=== PATIENT | male | born 1960 | race Caucasian/White ===

== ENCOUNTER 2019-08-17 15:58 | Emergency (ER) | payer MEDICARE, SELFPAY ==
--- NOTE | ~2019-08-17 | XR_ITS ---
EXAMINATION: XR chest 1V portable INDICATION: Cough and chills TECHNIQUE: Portable AP chest at 1644 hours COMPARISON: 03/14/2018 FINDINGS: The lungs are free of acute opacities. There is no pleural effusion or pneumothorax. The ca rdiomediastinal silhouette is normal. IMPRESSION: 1. No acute cardiopulmonary abnormality. Reviewed, dictated and finalized at location A. [facility]
--- NOTE | 2019-08-17 16:12 | PC.NURSE ---
RN ATTEMPTED TO COMPLETE PHYSICAL ASSESSMENT, VITAL SIGNS, PAST MEDICAL HISTORY, ETC. PT BECAME VERY ANGRY WITH THE NURSE FOR ASKING THE SAME QUESTION TWICE, BEGAN RAISING HIS VOICE, CURSING, AND STARTED SLAMMING THE DOOR. PATIENT DEMANDED HE BE SEEN BY ANOTHER NURSE BECAUSE IT IS FRUSTRATING FOR HIM TO ANSWER THE SAME QUESTION TWICE.
[2019-08-17 16:30] VITALS: BP 122/66; PULSE 82; RESP 22; TEMP 37.2; O2SAT 97
--- NOTE | 2019-08-17 16:37 | ED.GENADULT ---
HPI - General Adult General Chief complaint: Nausea/Vomiting/Diarrhea Stated complaint: bronchitis/ vomiting Source: patient Mode of arrival: ambulatory Limitations: no limitations History of Present Illness HPI narrative: 58 y.o. with moderate - severe myalgia, chills, diaphoresis since yesterday. Croup-like cough productive of clear sputum since yesterday. Sore throat and rhinorrhea onset 3 - 4 days ago. Vomiting x 2 days, about 9 times over the past 24 hours. No fever, SOB, abdominal pain or diarrhea. Has used his albuterol inhaler, which he normally does not. Hx. of inherited hypercoagulability condition treated with warfarin ( ? Factor V Leiden). S/p kidney transplant 40 years ago; takes prednisone 7.5 mg and mycophenolate daily. Depression and anxiety are treated with alprazolam and escitalopram. Htn tx. with carvedilol. Gout tx. with allopurinal. States he needs to be home to take care of his who was recently dx. with cancer (not on chemo) Related Data Home Medications Medication Instructions Recorded Confirmed acetaminophen-codeine 1 tablet PO Q6-8H PRN 08/17/19 08/17/19 albuterol sulfate 2 puff INHALATION QID PRN 08/17/19 08/17/19 allopurinol 100 mg PO DAILY 08/17/19 08/17/19 alprazolam 0.5 mg PO TID PRN 08/17/19 08/17/19 aspirin 81 mg PO DAILY 08/17/19 08/17/19 atorvastatin 20 mg PO DAILY 08/17/19 08/17/19 carvedilol 12.5 mg PO BID 08/17/19 08/17/19 cholecalciferol (vitamin D3) 1,000 unit PO DAILY 08/17/19 08/17/19 escitalopram oxalate 20 mg PO DAILY 08/17/19 08/17/19 mycophenolate mofetil 1,000 mg PO Q12H 08/17/19 08/17/19 prednisone 7.5 mg PO DAILY 08/17/19 08/17/19 warfarin 7 mg PO DAILY 08/17/19 08/17/19 Allergies Allergy/AdvReac Type Severity Reaction Status Date / Time No Known Allergies Allergy Unverified 03/14/18 18:18 Review of Systems Review of Systems: Narrative: Has been very upset about news of his having a PET scan showing cancer 2 days ago. 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 ENT: Reports system reviewed and no additional complaints, except as documented Cardiovascular: Cardiovascular: Denies chest pain Respiratory: Respiratory: Denies wheezing Gastrointestinal: Gastrointestinal: Reports no additional gastrointestinal complaints Genitourinary: Genitourinary: Denies dysuria Musculoskeletal: Musculoskeletal: Reports myalgias and Denies joint swelling Integumentary/Breasts: Skin/Breast: Denies rash Neurologic: Reports headache(s) Comments: chronic recurrent headaches, not worse today. Endocrine: Endocrine: Reports polydipsia Hematologic/Lymphatic: Hematologic/Lymphatic: Denies easy bleeding and Denies easy bruising Allergic/Immunologic: Allergic/Immunologic: Denies lip swelling PMFSH Past Medical History Medical History (Updated 08/17/19 @ 18:57 by Josue Littlejohn MD) Anxiety CVA (cerebral vascular accident) Depression Gout Hypertension Surgical History Surgical History (Updated 08/17/19 @ 16:54 by Josue Littlejohn MD) History of appendectomy Kidney transplanted Family History Family History (Updated 08/17/19 @ 16:55 by Josue Littlejohn MD) Mother No problems noted. Father Heart disease Social History Social History (Updated 08/17/19 @ 16:55 by Josue Littlejohn MD) Smoking status: Current every day smoker Gender identity (if verbalized by the patient): Male Exam Const: Other: Looks ill. Shivering one minute when he describes feeling cold, followed by feeling hot. No rigors. HENMT: Mouth: Yes Normal oral and palatal mucosa present Eyes: Other: Left eye is inset Neck: Neck: no lymphadenopathy Chest: Chest palpation & inspection: normal inspection of the chest Resp: Effort & Inspection: tachypneic Auscultation: no rales, no wheezes and diminished lung sounds Cardio: Rhythm: regular rhythm
--- NOTE | 2019-08-17 16:45 | PC.NURSE ---
Pt noted to be intermittently hyperventilating.
[2019-08-17] MEDS: ONDANSETRON INJ 4 MG/2 ML VIAL IV PUSH (16:49)
[2019-08-17] MEDS: IPRATROPIUM 0.5 MG/ALBUTEROL SULFATE 2.5 MG AMPUL.NEB 3 ML INHALATION (16:49)
[2019-08-17 16:52] VITALS: PULSE 77; RESP 24
[2019-08-17 16:56] LABS: Basophils Absolute Auto 0.01 K/mm3 (0.00-0.10); Basophils Percent Auto 0.2 % (0.0-1.0); Eosinophils Absolute Auto 0.01 K/mm3 (0.02-0.50); Eosinophils Percent Auto 0.2 % (1.0-6.0); Hematocrit 39.3 % (40.0-54.0); Hemoglobin 13.3 g/dL (14.0-18.0); Immature Granulocyte Absolute 0.03 K/mm3 (0.00-0.00); Immature Granulocyte Percent A 0.5 % (0.0-0.0); Lymphocytes Absolute Auto 0.29 K/mm3 (1.10-4.50); Lymphocytes Percent Auto 4.7 % (18.0-42.0); Mean Corpuscular HGB Conc 33.8 g/dL (32.0-36.0); Mean Corpuscular Hemoglobin 30.2 pg (27.0-31.0); Mean Corpuscular Volume 89.3 fL (78.0-102.0); Mean Platelet Volume 9.2 fl (8.7-11.0); Monocytes Absolute Auto 0.49 K/mm3 (0.10-0.90); Neutrophils Absolute Auto 5.3 K/mm3 (1.7-7.2); Neutrophils Percent Auto 86.4 % (50.0-70.0); Platelet Count Result 117 K/mm3 (150-420); Red Cell Distribution Width 12.5 % (11.6-14.4); White Blood Count 6.2 K/mm3 (4.8-10.8)
[2019-08-17 17:01] VITALS: TEMP 37.3
[2019-08-17 17:06] LABS: INR 2.4; Prothrombin Time 24.1 Seconds (9.64-11.0)
[2019-08-17] MEDS: ACETAMINOPHEN 325 MG TABLET 650 MG PO (17:07)
[2019-08-17 17:10] LABS: Alanine Aminotransferase 20 U/L (16-63); Albumin Level 3.4 g/dL (3.4-5.0); Alkaline Phosphatase 73 U/L (46-116); Anion Gap 16.9 mmol/L (7-16); Aspartate Amino Transferase 23 U/L (15-37); Bilirubin,Total 0.8 mg/dL (0.00-1.00); Blood Urea Nitrogen 22 mg/dL (7-18); Carbon Dioxide 24 mmol/L (21-32); Chloride 103 mmol/L (98-108); Estimated CRCL calculation 40 ml/min; Estimated Glomerular Filt Rate 37; Glucose 107 mg/dL (70-99); Osmolality Calculated 293 mOsm/kg (285-295); Potassium 3.9 mmol/L (3.5-5.1); Sodium 140 mmol/L (136-145); Total Protein 7.2 g/dL (6.4-8.2)
[2019-08-17 17:16] LABS: Influenza Control Valid (Valid)
[2019-08-17] MEDS: SODIUM CHLORIDE 0.9% IV 1,000 ML 999 ML IV CONT (17:19)
[2019-08-17 17:20] LABS: Lactic Acid 2.1 mmol/L (0.4-2.0)
--- NOTE | 2019-08-17 17:20 | PC.NURSE ---
Dr Littlejohn at bedside.
[2019-08-17 17:21] VITALS: BP 129/70; PULSE 79; RESP 22; O2SAT 99
--- NOTE | 2019-08-17 17:22 | PC.NURSE ---
Read back verbal order Dr Littlejohn- change NS IVF bolus from 1000mL to 500mL.
--- NOTE | 2019-08-17 17:33 | PC.NURSE ---
RA SpO2 81-86%. In to check pt who is sleeping but arouses easily to verbal stim. SpO2 immediately increased to 97% once awake. States he thinks he has undiagnosed sleep apnea. Denies wearing home O2 or Cpap. Dr Littlejohn aware. ABG ordered.
--- NOTE | 2019-08-17 17:40 | PC.NURSE ---
Upon speaking with pt regarding possibility of admission. Pt becoming tearful, adamantly refusing admission at this time stating that his has cancer and he has to go home to take care of her. Dr Littlejohn aware.
[2019-08-17 17:44] LABS: Base Excess ABG 0.2 mmol/L (0-2); HCO3 ABG 18.1 mmol/L (23-29); Oxygen Content ABG 17.7 %vol (16.0-22.0); Oxygen Saturation ABG 98.4 % (95-97); Oxyhemoglobin 96.3 % (94-100); PCO2 ABG 16.2 mmHg (35-45)
[2019-08-17 17:46] LABS: pH ABG 7.67 (7.35-7.45)
[2019-08-17] MEDS: OSELTAMIVIR PHOSPHATE 6 MG/ML SUSP 60 ML BOTTLE 30 MG PO (17:46)
[2019-08-17 17:47] LABS: Device ROOM AIR; Modified Allen's Test Pass; Site Drawn RIGHT RADIAL
--- NOTE | 2019-08-17 17:56 | PC.NURSE ---
Dr Littlejohn at bedside.
[2019-08-17 17:57] VITALS: BP 138/71; PULSE 67; RESP 24; O2SAT 96
[2019-08-17 18:15] VITALS: BP 131/72; PULSE 79; RESP 22; O2SAT 98
[2019-08-17] MEDS: predniSONE 20 MG TABLET 40 MG PO (18:19)
--- NOTE | 2019-08-17 18:20 | PC.NURSE ---
NS IVF 1L discontinued at this time with on 300mL infused, 700mL wasted.
== END 2019-08-17 18:41 | disposition home or self-care (01) ==
PROVIDERS: Emergency Provider Family Medicine; PCP Internal Medicine
DX: J11.1 Influenza due to unidentified influenza virus with other respiratory manifestations (principal); E87.3 Alkalosis; F41.9 Anxiety disorder, unspecified; I10 Essential (primary) hypertension; F17.200 Nicotine dependence, unspecified, uncomplicated; Z86.73 Personal history of transient ischemic attack (TIA), and cerebral infarction without residual deficits
CPT/HCPCS: 36415; 36600; 71045; 80053; 82805; 83605; 85025; 85610; 87040; 87804; 94640; 96361; 96374; 99283; 99284; A9270; J2405; J7030; J7512

== ENCOUNTER 2020-03-15 19:18 | Emergency (ER) | payer MEDICARE, SELFPAY ==
[2020-03-15 19:20] VITALS: BP 160/61; PULSE 71; RESP 16; TEMP 36.9; O2SAT 96
--- NOTE | 2020-03-15 19:46 | ED.GENADULT ---
HPI - General Adult General Chief complaint: Nausea/Vomiting/Diarrhea Stated complaint: hot/cold,vomiting Source: patient Mode of arrival: ambulatory Limitations: no limitations History of Present Illness HPI narrative: This is 59-year-old gentleman that presents with a history of fever feeling fatigued and tired initially mention that he had some mild shortness of breath had an episode of vomiting with some abdominal discomfort with no diarrhea constipation, subjective fever. The patient denied chest pain but does have a history of CV and a history of renal transplant. Denies any chest pain, no flank pain no dysuria. The patient subsequently asked me what test ME going to run and I mentioned blood test, flu test an EKG and an x-ray, and the patient started becoming belligerent and high rate, and said that I was being an SMARTASS , because why are you doing an EKG and a chest x-ray. Patient subsequently became irate and walked out without any further assessment or treatment. Onset (ago): day(s) Associated symptoms: fever/chills, nausea/vomiting and shortness of breath Related Data Home Medications Medication Instructions Recorded Confirmed albuterol sulfate 2 puff INHALATION QID PRN 08/17/19 03/15/20 allopurinol 100 mg PO DAILY 08/17/19 03/15/20 alprazolam 0.5 mg PO TID PRN 08/17/19 03/15/20 aspirin 81 mg PO DAILY 08/17/19 03/15/20 atorvastatin 20 mg PO DAILY 08/17/19 03/15/20 carvedilol 12.5 mg PO BID 08/17/19 03/15/20 cholecalciferol (vitamin D3) 1,000 unit PO DAILY 08/17/19 03/15/20 escitalopram oxalate 20 mg PO DAILY 08/17/19 03/15/20 mycophenolate mofetil 1,000 mg PO Q12H 08/17/19 03/15/20 prednisone 7.5 mg PO DAILY 08/17/19 03/15/20 warfarin 7 mg PO DAILY 08/17/19 03/15/20 Allergies Allergy/AdvReac Type Severity Reaction Status Date / Time No Known Allergies Allergy Unverified 03/14/18 18:18 Review of Systems Review of Systems: All systems reviewed & are unremarkable except as noted in HPI and below PMFSH Past Medical History Medical History Anxiety CVA (cerebral vascular accident) Depression Gout Hypertension Surgical History Surgical History History of appendectomy Kidney transplanted Family History Family History Mother No problems noted. Father Heart disease Social History Social History Smoking status: Current every day smoker Gender identity (if verbalized by the patient): Male Exam Const: General: no acute distress Orientation/consciousness: patient oriented x3 HENMT: Head: normal to inspection Eyes: Conjunctivae: conjunctivae normal Pupils: Equal, round and reactive pupils present Neck: Neck: normal visual inspection and no lymphadenopathy Chest: Chest palpation & inspection: normal inspection of the chest and abnormal inspection of the chest Resp: Effort & Inspection: normal respiratory effort Auscultation: wheezes and diminished lung sounds Cardio: Rate: regular rate Rhythm: regular rhythm GI: GI Palp: Yes Soft to palpation Percussion: Yes normal to percussion Auscultation: normal bowel sounds Back/Spine/Pelvis: Back: no CVA tenderness Skin: General skin exam: normal color Rashes: no rashes Psych: Mental Status: mental status grossly normal Course Course Emergency Course: The patient was upset that I wanted to do an x-ray of his chest and an EKG, and he expressed the fact that why should be pay for those tests. Given the fact the patient has a history of high blood pressure feeling fatigued had audible wheezing, concern was for rule out heart disease, rule out pneumonia, but the patient walked out and threatened to report me and was extremely belligerent and using foul language. Critical Care Time Critical
--- NOTE | 2020-03-15 19:49 | PC.NURSE ---
PT COMES OUT OF ROOM SCREAMING STATING THAT HE WANTS TO REPORT US BECAUSE HE IS TIRED OF US ASKING SO MANY QUESTIONS. STATES THAT THE ERP WAS BEING A SMARTASS. I REMINDED PATIENT THAT WE HAVE TO ASK QUESTIONS TO FIND OUT WHAT KIND OF THINGS WE NEED TO ORDER. PT STATES HE WILL BE CALLING THE HOSPITAL TOMORROW TO REPORT US.
--- NOTE | 2020-03-15 19:55 | PC.NURSE ---
PT TELLS STAFF THAT THERE IS NO REASON TO ORDER ALL OF THESE TESTS BECAUSE WE'RE JUST TRYING TO INCREASE HIS BILL
== END 2020-03-15 19:50 | disposition left against medical advice (07) ==
PROVIDERS: Emergency Provider Emergency Medicine; PCP Internal Medicine
DX: R50.9 Fever, unspecified (principal)
CPT/HCPCS: 99281

== ENCOUNTER 2020-03-16 12:43 | Emergency (ER) | payer MEDICARE, SELFPAY ==
[2020-03-16 12:45] VITALS: BP 137/76; PULSE 79; RESP 16; TEMP 36.7; O2SAT 97
--- NOTE | 2020-03-16 13:06 | ED.NAVMDI ---
HPI - Nausea/Vomiting/Diarrhea General Chief complaint: Weakness Stated complaint: nausea, body aches Time Seen by Provider: 03/16/20 13:06 Source: patient Mode of arrival: ambulatory Limitations: no limitations History of Present Illness HPI Narrative: 59-year-old man with a history of kidney transplant, coronary artery disease, and CVAs comes in today complaining of fatigue, nausea and vomiting which started 2 days ago. He states that he also had chills and felt like he had a fever although his took his temperature and it was normal. he states he has had no vomiting today but still feels fatigued. He denies chest pain, shortness breath, cough or cold symptoms, sore throat, dysuria, hematuria, abdominal pain, rash and diarrhea. He denies any sick exposures or exposures to people or positive for SARS-CoV-2. MD elicited complaint: nausea and vomiting Onset (ago): day(s) (2) Description of vomiting: food contents and watery Associated nausea: Yes Associated abdominal pain: Yes Location of pain: diffuse Pain consistency: intermittent Severity: moderate Exacerbating factors: none Relieving factors: none Context: history of abdominal surgery and anticoagulant use Associated symptoms: myalgias, fever/chills, malaise and nausea/vomiting Related Data Home Medications Medication Instructions Recorded Confirmed albuterol sulfate 2 puff INHALATION QID PRN 08/17/19 03/16/20 allopurinol 100 mg PO DAILY 08/17/19 03/16/20 alprazolam 0.5 mg PO TID PRN 08/17/19 03/16/20 aspirin 81 mg PO DAILY 08/17/19 03/16/20 atorvastatin 20 mg PO DAILY 08/17/19 03/16/20 carvedilol 12.5 mg PO BID 08/17/19 03/16/20 cholecalciferol (vitamin D3) 1,000 unit PO DAILY 08/17/19 03/16/20 escitalopram oxalate 20 mg PO DAILY 08/17/19 03/16/20 mycophenolate mofetil 1,000 mg PO Q12H 08/17/19 03/16/20 warfarin 7 mg PO DAILY 08/17/19 03/16/20 Allergies Allergy/AdvReac Type Severity Reaction Status Date / Time No Known Allergies Allergy Unverified 03/14/18 18:18 Review of Systems Constitutional: Constitutional: Reports chills, Reports fatigue, Reports fever(s) and Denies weakness Eyes: Eyes: Denies change in vision and Denies photophobia ENT: Denies dysphagia, Denies nasal congestion and Denies sore throat Cardiovascular: Cardiovascular: Denies chest pain and Denies radiating jaw, neck or arm pain Respiratory: Respiratory: Denies cough, Denies dyspnea and Denies wheezing Gastrointestinal: Gastrointestinal: Reports as per HPI, Reports abdominal pain, Denies diarrhea, Reports nausea and Reports vomiting Genitourinary: Genitourinary: Denies hematuria, Denies dysuria and Denies urinary frequency Musculoskeletal: Musculoskeletal: Denies arthralgias and Denies joint swelling Integumentary/Breasts: Skin/Breast: Denies pruritus, Denies erythema and Denies rash Neurologic: Denies vertigo, Denies dizziness and Denies syncope Endocrine: Endocrine: Denies polydipsia and Denies polyuria Hematologic/Lymphatic: Hematologic/Lymphatic: Denies easy bleeding and Denies easy bruising Allergic/Immunologic: Allergic/Immunologic: Denies lip swelling and Denies tongue swelling PMFSH Past Medical History Medical History (Updated 03/16/20 @ 13:41 by Josue Zapata MD) Anxiety Congenital kidney disease CVA (cerebral vascular accident) Depression Gout Hypertension Surgical History Surgical History H/O umbilical hernia repair History of appendectomy Kidney transplanted S/P coronary artery stent placement Social History Social History Smoking status: Current every day smoker Gender identity (if verbalized by the patient): Male Exam Const: General: healthy appearing, no acute distress and alert Orientation/consciousness: patient oriented x3 Limitations: no limitations HENMT: Head: normal to inspection Ears: external ears normal, TM's
[2020-03-16 13:20] LABS: Appearance Urine Clear (Clear); Bilirubin Urine Negative (Negative); Color Urine Yellow (Yellow); Glucose Urine UA Negative (Negative); Ketones Urine Negative (Negative); Leukocyte Esterase Ur Negative (Negative); Nitrate Urine Negative (Negative); Protein Urine 2+ (Negative); Urobilinogen Urine 0.2 mg/dL (0.2-1.0)
[2020-03-16 13:26] LABS: Add Urine Microscopic? YES; Bacteria Urine None seen /hpf; Blood Urine Trace-Intact (Negative); RBC Urine 0-2 /hpf (0-2); Squamous Epithelial Cell Urine Rare /hpf (Few); WBC Urine 0-3 /hpf (0-3)
[2020-03-16 13:32] LABS: Basophils Absolute Auto 0.01 K/mm3 (0.00-0.10); Basophils Percent Auto 0.1 % (0.0-1.0); Eosinophils Absolute Auto 0.04 K/mm3 (0.02-0.50); Eosinophils Percent Auto 0.5 % (1.0-6.0); Hematocrit 38.9 % (40.0-54.0); Hemoglobin 12.3 g/dL (14.0-18.0); Immature Granulocyte Absolute 0.05 K/mm3 (0.00-0.00); Immature Granulocyte Percent A 0.7 % (0.0-0.0); Immature Platelet Fraction Pct 1.4 % (1.0-7.0); Lymphocytes Absolute Auto 1.01 K/mm3 (1.10-4.50); Lymphocytes Percent Auto 13.8 % (18.0-42.0); Mean Corpuscular HGB Conc 31.6 g/dL (32.0-36.0); Mean Corpuscular Volume 91.7 fL (78.0-102.0); Mean Platelet Volume 9.3 fl (8.7-11.0); Monocytes Absolute Auto 0.48 K/mm3 (0.10-0.90); Monocytes Percent Auto 6.5 % (2.0-11.0); Neutrophils Absolute Auto 5.8 K/mm3 (1.7-7.2); Neutrophils Percent Auto 78.4 % (50.0-70.0); Platelet Count Result 138 K/mm3 (150-420); Red Blood Count 4.24 M/mm3 (4.70-6.10); Red Cell Distribution Width 12.9 % (11.6-14.4); White Blood Count 7.3 K/mm3 (4.8-10.8)
[2020-03-16 13:47] LABS: Alanine Aminotransferase 20 U/L (16-63); Albumin Level 3.4 g/dL (3.4-5.0); Alkaline Phosphatase 83 U/L (46-116); Anion Gap 8 mmol/L (8-16); Aspartate Amino Transferase 15 U/L (15-37); Bilirubin,Total 0.5 mg/dL (0.00-1.00); Blood Urea Nitrogen 27 mg/dL (7-18); Calcium 8.9 mg/dL (8.5-10.1); Carbon Dioxide 29 mmol/L (21-32); Chloride 104 mmol/L (98-108); Estimated CRCL calculation 39 ml/min; Estimated Glomerular Filt Rate 38; Glucose 120 mg/dL (70-99); Osmolality Calculated 298 mOsm/kg (285-295); Potassium 4.5 mmol/L (3.5-5.1); Sodium 141 mmol/L (136-145); Total Protein 7.2 g/dL (6.4-8.2)
[2020-03-16 14:02] VITALS: BP 131/72; PULSE 64
[2020-03-16 14:04] VITALS: BP 134/71; PULSE 70
--- NOTE | 2020-03-16 14:15 | PC.NURSE ---
pt resting per cot. no complaint voiced at this time
[2020-03-16 14:38] LABS: Influenza Control Valid (Valid)
[2020-03-16 14:51] VITALS: BP 137/72; PULSE 63; RESP 20; O2SAT 99
[2020-03-17 02:13] LABS: SARS-CoV-2 RNA PCR Negative
== END 2020-03-16 14:53 | disposition home or self-care (01) ==
PROVIDERS: Emergency Provider Emergency Medicine; PCP Internal Medicine
DX: B34.9 Viral infection, unspecified (principal); Z86.73 Personal history of transient ischemic attack (TIA), and cerebral infarction without residual deficits; I10 Essential (primary) hypertension; F17.200 Nicotine dependence, unspecified, uncomplicated
CPT/HCPCS: 80053; 81001; 85025; 85055; 87635; 87804; 99282; 99283; C9803; U0003

== ENCOUNTER 2020-09-17 12:52 | Emergency (ER) | payer MEDICARE, SELFPAY ==
[2020-09-17 13:00] VITALS: BP 141/92; PULSE 85; RESP 16; TEMP 37; O2SAT 98
[2020-09-17] MEDS: TETANUS,DIPHTHERIA,AC PERTUSSIS ADULT 0.5 ML (ADACEL) IM (13:09)
--- NOTE | 2020-09-17 13:24 | ED.WOUNDLAC ---
HPI - Wound/Laceration General Chief Complaint: Wound/Laceration Stated Complaint: poked in the leg by a richar wire Time Seen by Provider: 09/17/20 13:24 Source: patient Mode of arrival: ambulatory Limitations: no limitations History of Present Illness HPI narrative: 59-year-old man with a history of kidney transplant and CVA comes in today complaining a puncture wound on his right lower leg. Was putting up tomato ladders when the end (soil end) of the wire poked him in the leg. Does not recall his last tetanus shot. He is currently taking amoxicillin in anticipation of a dental visit in the morning. Onset (ago): hour(s) (1) Extremity Location: Right: lower leg Place: home and outdoors Patient tetanus UTD: No Context: accidental Associated symptoms: pain Treatments prior to arrival: bandage Related Data Home Medications Medication Instructions Recorded Confirmed allopurinol 100 mg PO DAILY 08/17/19 09/17/20 alprazolam 0.5 mg PO TID PRN 08/17/19 09/17/20 aspirin 81 mg PO DAILY 08/17/19 09/17/20 atorvastatin 20 mg PO DAILY 08/17/19 09/17/20 cholecalciferol (vitamin D3) 1,000 unit PO DAILY 08/17/19 09/17/20 escitalopram oxalate 20 mg PO DAILY 08/17/19 09/17/20 mycophenolate mofetil 1,000 mg PO Q12H 08/17/19 09/17/20 warfarin 7 mg PO DAILY 08/17/19 09/17/20 acetaminophen-codeine 1 tablet PO Q6H PRN 09/17/20 09/17/20 prednisone 7.5 mg PO DAILY 09/17/20 09/17/20 Allergies Allergy/AdvReac Type Severity Reaction Status Date / Time No Known Allergies Allergy Unverified 03/14/18 18:18 Review of Systems Review of Systems: All systems reviewed & are unremarkable except as noted in HPI and below Constitutional: Constitutional: Denies chills and Denies fever(s) Musculoskeletal: Musculoskeletal: Denies joint swelling Integumentary/Breasts: Skin/Breast: Denies pruritus, Denies erythema and Denies rash Hematologic/Lymphatic: Hematologic/Lymphatic: Reports easy bleeding and Reports easy bruising (on Warfarin) Allergic/Immunologic: Allergic/Immunologic: Denies lip swelling and Denies throat swelling [facility] Past Medical History Medical History Anxiety Congenital kidney disease CVA (cerebral vascular accident) Depression Gout Hypertension Surgical History Surgical History (Updated 09/17/20 @ 13:39 by Josue Zapata MD) H/O umbilical hernia repair History of appendectomy Kidney transplanted S/P coronary artery stent placement Family History Family History Mother No problems noted. Father Heart disease Social History Social History Smoking status: Current every day smoker Gender identity (if verbalized by the patient): Male Exam Const: General: no acute distress and alert Orientation/consciousness: patient oriented x3 Limitations: no limitations HENMT: Head: normal to inspection Eyes: Conjunctivae: conjunctivae normal Pupils: Equal, round and reactive pupils present Resp: Effort & Inspection: normal respiratory effort and not labored Auscultation: clear to auscultation bilaterally, no rales, no rhonchi and no wheezes Cardio: Rate: regular rate Rhythm: regular rhythm Heart sounds: no murmurs Skin: General skin exam: normal color, no jaundice and no pallor Rashes: no rashes Other: 1.5 cm irregular puncture wound over the right palm. No palpable foreign body or active bleeding. Neuro: General: patient oriented x3, moves all extremities, no focal motor deficits and CN's II-XI intact bilaterally Speech: normal speech Gait exam (Neuro): Normal gait present Extrem: General: normal to inspection and no clubbing, cyanosis or edema Psych: Appearance: grossly normal and well kempt Mental Status: mental status grossly normal Affect: normal affect Attitude: cooperative Thought content: Yes Normal thou
== END 2020-09-17 13:50 | disposition home or self-care (01) ==
PROVIDERS: Emergency Provider Emergency Medicine; PCP Internal Medicine
DX: S81.831A Puncture wound without foreign body, right lower leg, initial encounter (principal); W45.8XXA Other foreign body or object entering through skin, initial encounter
CPT/HCPCS: 90471; 90715; 99283

== ENCOUNTER 2020-10-11 17:24 | Emergency (ER) | payer MEDICARE, SELFPAY ==
[2020-10-11 17:30] VITALS: BP 141/46; PULSE 61; RESP 16; TEMP 36.9; O2SAT 94
--- NOTE | 2020-10-11 17:46 | ED.WOUNDLAC ---
HPI - Wound/Laceration General Chief Complaint: Wound/Laceration Stated Complaint: cut on leg Source: patient Mode of arrival: ambulatory Limitations: no limitations History of Present Illness HPI narrative: is a 59-year-old gentleman that presents with a wound to the lateral aspect of his right lower leg occurred approximately 1 month ago and was healing and then got his leg caught in a car door and opened the wound up and was seen here approximately 1 week ago was updated with his tetanus at that time. Currently there is minimal drainage with some areas of erythema with no fever chills. Onset (ago): month(s) Extremity Location: Right: lower leg ( The wound currently draining) Place: outdoors Context: accidental Related Data Home Medications Medication Instructions Recorded Confirmed allopurinol 100 mg PO DAILY 08/17/19 10/11/20 alprazolam 0.5 mg PO TID PRN 08/17/19 10/11/20 aspirin 81 mg PO DAILY 08/17/19 10/11/20 atorvastatin 20 mg PO DAILY 08/17/19 10/11/20 cholecalciferol (vitamin D3) 1,000 unit PO DAILY 08/17/19 10/11/20 escitalopram oxalate 20 mg PO DAILY 08/17/19 10/11/20 mycophenolate mofetil 1,000 mg PO Q12H 08/17/19 10/11/20 warfarin 7 mg PO DAILY 08/17/19 10/11/20 prednisone 7.5 mg PO DAILY 09/17/20 10/11/20 Allergies Allergy/AdvReac Type Severity Reaction Status Date / Time No Known Allergies Allergy Unverified 03/14/18 18:18 Review of Systems Review of Systems: All systems reviewed & are unremarkable except as noted in HPI and below PMFSH Past Medical History Medical History Anxiety Congenital kidney disease CVA (cerebral vascular accident) Depression Gout Hypertension Surgical History Surgical History H/O umbilical hernia repair History of appendectomy Kidney transplanted S/P coronary artery stent placement Family History Family History Mother No problems noted. Father Heart disease Social History Social History Smoking status: Current every day smoker Gender identity (if verbalized by the patient): Male Exam Const: General: no acute distress and alert Orientation/consciousness: patient oriented x3 HENMT: Head: normal to inspection Eyes: Conjunctivae: conjunctivae normal Pupils: Equal, round and reactive pupils present Neck: Neck: normal visual inspection, no lymphadenopathy and no meningeal signs Chest: Chest palpation & inspection: normal inspection of the chest Resp: Effort & Inspection: normal respiratory effort Auscultation: clear to auscultation bilaterally Cardio: Rate: regular rate Rhythm: regular rhythm GI: GI Palp: Yes Soft to palpation Skin: Wounds: wounds noted Other: Lateral aspect of his right lower leg an area of erythema and some yellow discharge Neuro: General: patient oriented x3, moves all extremities and no meningeal signs Extrem: General: normal to inspection and no pedal edema Psych: Mental Status: mental status grossly normal Course Course Emergency Course: patient up-to-date with his tetanus shot, patient received a 1 g dose of IM ceftriaxone advised to take medicine as prescribed. Vital Signs Vital signs: Vital Signs Temperature 36.9 C 10/11/20 17:30 Pulse Rate 61 10/11/20 17:30 Respiratory Rate 16 10/11/20 17:30 Blood Pressure 141/46 H 10/11/20 17:30 Pulse Oximetry 94 10/11/20 17:30 Temperature 36.9 C 10/11/20 17:30 Pulse Rate 61 10/11/20 17:30 Respiratory Rate 16 10/11/20 17:30 Blood Pressure 141/46 H 10/11/20 17:30 Pulse Oximetry 94 10/11/20 17:30 Critical Care Time Critical Care Time Critical Care Time: No Discharge Plan Discharge Clinical Impression: Abscess Patient Disposition: Home, Self-Care Condition: Stable In
[2020-10-11] MEDS: cefTRIAXone 1 GM VIAL IM (17:53)
== END 2020-10-11 17:55 | disposition home or self-care (01) ==
PROVIDERS: Emergency Provider Emergency Medicine; PCP Internal Medicine
DX: L02.415 Cutaneous abscess of right lower limb (principal)
CPT/HCPCS: 96372; 99283; J0696

== ENCOUNTER 2020-11-17 12:22 | Emergency (ER) | payer MEDICARE, SELFPAY ==
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
--- NOTE | ~2020-11-17 | XR_ITS ---
XR shoulder RT min 2V 11/17/2020 15:14 Indication: Post reduction right shoulder dislocation Procedure: 4 views right shoulder Comparison: 11/17/2020 Findings: There is anatomic alignment of the glenohumeral joint post reduction. There is Hill-Sachs f racture deformity. There is osteoarthritis of the acromioclavicular joint. Surrounding osseous struct ures and soft tissues within normal limits. Impression: 1: Anatomic alignment of the right shoulder post reduction. 2: Hill-Sachs fracture of the humerus. 3: Osteoarthritis of the acromioclavicular joint. Reviewed, dictated and finalized at location A. Impression: 1: Anatomic alignment of the right shoulder post reduction. 2: Hill-Sachs fracture of the humerus. 3: Osteoarthritis of the acromioclavicular joint.
--- NOTE | ~2020-11-17 | XR_ITS ---
EXAMINATION: XR shoulder RT min 2V DATE: 11/17/2020 13:32 INDICATION: Right shoulder pain. TECHNIQUE: 4 views of right shoulder were obtained. COMPARISON: None. FINDINGS: There is anterior dislocation of humeral head with respect to glenoid. There is an impactio n fracture of posterolateral aspect of humeral head (Hill-Sachs fracture). There is severe osteoarthr itis of acromioclavicular joint. There are osteophytes of the glenoid. IMPRESSION: 1. Anterior right shoulder dislocation. 2. Hill-Sachs fracture. 3. Severe osteoarthritis of acromioclavicular joint. Reviewed, dictated and finalized at location A.
[2020-11-17 12:40] VITALS: BP 171/75; PULSE 83; RESP 14; TEMP 36.1; O2SAT 98
[2020-11-17 13:20] LABS: Basophils Absolute Auto 0.03 K/mm3 (0.00-0.10); Basophils Percent Auto 0.3 % (0.0-1.0); Eosinophils Absolute Auto 0.11 K/mm3 (0.02-0.50); Eosinophils Percent Auto 1.1 % (1.0-6.0); Hematocrit 39.8 % (40.0-54.0); Immature Granulocyte Absolute 0.07 K/mm3 (0.00-0.00); Immature Granulocyte Percent A 0.7 % (0.0-0.0); Lymphocytes Absolute Auto 0.92 K/mm3 (1.10-4.50); Lymphocytes Percent Auto 8.9 % (18.0-42.0); Mean Corpuscular HGB Conc 32.7 g/dL (32.0-36.0); Mean Corpuscular Hemoglobin 29.7 pg (27.0-31.0); Mean Corpuscular Volume 90.9 fL (78.0-102.0); Mean Platelet Volume 9.7 fl (8.7-11.0); Monocytes Percent Auto 4.8 % (2.0-11.0); Neutrophils Absolute Auto 8.7 K/mm3 (1.7-7.2); Neutrophils Percent Auto 84.2 % (50.0-70.0); Platelet Count Result 147 K/mm3 (150-420); Red Blood Count 4.38 M/mm3 (4.70-6.10); Red Cell Distribution Width 13.1 % (11.6-14.4); White Blood Count 10.3 K/mm3 (4.8-10.8)
[2020-11-17 13:32] LABS: Alanine Aminotransferase 20 U/L (16-63); Albumin Level 3.3 g/dL (3.4-5.0); Alkaline Phosphatase 92 U/L (46-116); Anion Gap 9 mmol/L (8-16); Aspartate Amino Transferase 14 U/L (15-37); Bilirubin,Total 0.4 mg/dL (0.00-1.00); Blood Urea Nitrogen 26 mg/dL (7-18); Carbon Dioxide 27 mmol/L (21-32); Chloride 102 mmol/L (98-108); Estimated CRCL calculation 35 ml/min; Estimated Glomerular Filt Rate 36; Glucose 129 mg/dL (70-99); INR 3.3; Osmolality Calculated 292 mOsm/kg (285-295); Potassium 4.2 mmol/L (3.5-5.1); Sodium 138 mmol/L (136-145); Total Protein 7.3 g/dL (6.4-8.2)
[2020-11-17] MEDS: HYDROmorphone HCL INJ (*CRX) 2 MG/ML VIAL 1 MG IV PUSH (13:42)
[2020-11-17] MEDS: MIDAZOLAM HCL (*CRX) 2 MG/2 ML VIAL IV PUSH (14:26)
[2020-11-17] MEDS: SODIUM CHLORIDE 0.9% IV 1,000 ML 999 ML (14:58)
--- NOTE | 2020-11-17 15:01 | PC.NURSE ---
conscious sedation/shoulder relocation performed by erp . please see physical paper chart for documentation
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
[2020-11-17 16:00] VITALS: BP 111/58; PULSE 50; RESP 12; TEMP 36.6; O2SAT 92
== END 2020-11-17 16:10 ==
PROVIDERS: Emergency Provider Emergency Medicine; PCP Internal Medicine
DX: S43.004A Unspecified dislocation of right shoulder joint, initial encounter (principal); W19.XXXA Unspecified fall, initial encounter; I10 Essential (primary) hypertension; Z86.73 Personal history of transient ischemic attack (TIA), and cerebral infarction without residual deficits; F17.200 Nicotine dependence, unspecified, uncomplicated
CPT/HCPCS: 23650; 36415; 70450; 73030; 80053; 85025; 85610; 96374; 96375; 99283; 99285; J1170; J2250; J7030; L3670

== ENCOUNTER 2021-01-02 12:02 | Outpatient (CLI) | payer MEDICARE, SELFPAY ==
--- NOTE | ~2021-01-02 | XR_ITS ---
XR chest 2V DATE: 01/02/2021 12:33 INDICATION: Chest pain, weight loss. Shoulder pain. TECHNIQUE: PA and lateral views COMPARISON: August 17, 2019 portable AP chest March 14, 2018 two-view chest FINDINGS: Normal heart size. No hilar or mediastinal enlargement. The lungs are clear of infiltrate o r consolidation, mildly hyperinflated. No pleural effusion or pulmonary vascular congestion or pneumo thorax. Mild dextroscoliosis and mild spurring of the thoracic spine. IMPRESSION: No active cardiopulmonary disease Reviewed, dictated and finalized at location B.
--- NOTE | ~2021-01-02 | XR_ITS ---
XR shoulder RT min 2V DATE: 01/02/2021 12:33 INDICATION: Right shoulder pain TECHNIQUE: 5 views COMPARISON: 11/17/2020 right shoulder FINDINGS: No fracture, dislocation, periosteal reaction or bone destruction or abnormal right shoulde r soft tissue calcification. IMPRESSION: No significant abnormality of right shoulder Reviewed, dictated and finalized at location B.
== END 2021-01-02 12:03 | disposition home or self-care (01) ==
PROVIDERS: PCP Internal Medicine; Visit Provider Internal Medicine
DX: M25.511 Pain in right shoulder (principal); R63.4 Abnormal weight loss; N18.9 Chronic kidney disease, unspecified; Z94.0 Kidney transplant status; Z79.01 Long term (current) use of anticoagulants
CPT/HCPCS: 71046; 73030

== ENCOUNTER 2022-01-02 09:19 | Emergency (ER) | payer MEDICARE, SELFPAY ==
--- NOTE | ~2022-01-02 | XR_ITS ---
EXAMINATION: XR tibia fibula RT 2V DATE: 01/02/2022 10:07 INDICATION: Right lower leg pain and swelling. TECHNIQUE: 2 views of right tibia and fibula were obtained. COMPARISON: None. FINDINGS: Bone alignment is normal. No fracture. The knee demonstrates severe osteoarthritis of the m edial compartment, moderate osteoarthritis of the patellofemoral compartment, and mild osteoarthritis of lateral compartment. IMPRESSION: 1. Severe right knee osteoarthritis. Reviewed, dictated and finalized at location A.
[2022-01-02 09:37] LABS: Glucose Point of Care 104 mg/dl (65-105)
[2022-01-02 09:38] VITALS: BP 137/64; PULSE 60; RESP 20; TEMP 36.4; O2SAT 98
--- NOTE | 2022-01-02 09:52 | ED.GENADULT ---
HPI - General Adult General Chief complaint: Extremity Injury, Lower Stated complaint: ANKLE SWOLLEN AND RED History of Present Illness HPI narrative: This is a 61-year-old male history of a kidney transplant on immunosuppression was 90 ED with 2 days of right lower extremity pain and swelling. Patient states he was moving boxes on Thursday morning. He noticed that he may have scratched his lower leg. There is an ID notes that the leg was becoming more swollen and is becoming slightly more painful. The patient has noted some chills over the last 2 days. He denies fever, nausea, vomiting or diarrhea. The patient has never had cellulitis before. Related Data Home Medications Medication Instructions Recorded Confirmed allopurinol 100 mg tablet 100 mg PO DAILY 08/17/19 01/02/22 alprazolam 0.5 mg tablet 0.5 mg PO TID PRN Anxiety 08/17/19 01/02/22 aspirin 81 mg chewable tablet 81 mg PO DAILY 08/17/19 01/02/22 atorvastatin 20 mg tablet 20 mg PO DAILY 08/17/19 01/02/22 cholecalciferol (vitamin D3) 25 1,000 unit PO TID 08/17/19 01/02/22 mcg (1,000 unit) capsule escitalopram oxalate 20 mg tablet 20 mg PO DAILY 08/17/19 01/02/22 warfarin 2 mg tablet 7 mg PO DAILY 08/17/19 01/02/22 prednisone 5 mg tablet 7.5 mg PO DAILY 09/17/20 01/02/22 carvedilol 25 mg tablet 12.5 mg PO BID 11/17/20 01/02/22 amlodipine 5 mg tablet 1 tablet PO HS 01/02/22 01/02/22 cyanocobalamin (vitamin B-12) 500 500 mcg PO DAILY 01/02/22 01/02/22 mcg tablet mycophenolate mofetil 500 mg tablet 2 tablet PO BID 01/02/22 01/02/22 Allergies Allergy/AdvReac Type Severity Reaction Status Date / Time No Known Allergies Allergy Unverified 01/02/22 09:44 Review of Systems Constitutional: Constitutional: Reports chills Eyes: Eyes: Denies no additional eye complaints ENT: Reports system reviewed and no additional complaints, except as documented Cardiovascular: Cardiovascular: Denies chest pain Respiratory: Respiratory: Denies chest congestion Gastrointestinal: Gastrointestinal: Denies abdominal pain Genitourinary: Genitourinary: Denies hematuria Musculoskeletal: Musculoskeletal: Denies back pain Integumentary/Breasts: Skin/Breast: Reports pruritus and Reports erythema Neurologic: Denies confusion Psychiatric: Psychiatric: Denies anxiety Endocrine: Endocrine: Denies excessive sweating Hematologic/Lymphatic: Hematologic/Lymphatic: Denies easy bleeding Allergic/Immunologic: Allergic/Immunologic: Denies lip swelling [facility] Past Medical History Medical History Anxiety Congenital kidney disease CVA (cerebral vascular accident) Depression Gout Hypertension Surgical History Surgical History H/O umbilical hernia repair History of appendectomy Kidney transplanted S/P coronary artery stent placement Family History Family History Mother No problems noted. Father Heart disease Social History Social History Smoking status: Current every day smoker Gender identity (if verbalized by the patient): Male Exam Const: General: healthy appearing and no acute distress HENMT: Head: normal to inspection Ears: external ears normal General nose exam: Normal external nose present Face and sinus: normal facial exam Mouth: Yes Normal oral and palatal mucosa present Eyes: Conjunctivae: conjunctivae normal Neck: Neck: normal visual inspection Chest: Chest palpation & inspection: normal inspection of the chest Resp: Effort & Inspection: normal respiratory effort GI: GI Palp: Yes Soft to palpation, No Tenderness to palpation present (GI) and No Guarding due to palpation present (GI) : General: No no CVA tenderness Skin: General skin exam: normal color Neuro: General: patient oriented x3 and mo
[2022-01-02 11:00] VITALS: BP 112/53; PULSE 78; RESP 20; TEMP 36.7; O2SAT 98
== END 2022-01-02 11:02 | disposition home or self-care (01) ==
PROVIDERS: Emergency Provider Emergency Medicine; PCP Internal Medicine
DX: L03.115 Cellulitis of right lower limb (principal); N28.9 Disorder of kidney and ureter, unspecified; I10 Essential (primary) hypertension; F32.A Depression, unspecified; M10.9 Gout, unspecified; Z95.5 Presence of coronary angioplasty implant and graft; F41.9 Anxiety disorder, unspecified; Z94.0 Kidney transplant status; Z79.01 Long term (current) use of anticoagulants
CPT/HCPCS: 73590; 82948; 99283

== ENCOUNTER 2023-08-03 10:40 | Outpatient (CLI) | payer MEDICARE, SELFPAY ==
[2023-08-03 11:04] LABS: Appearance Urine Clear (Clear); Bilirubin Urine Negative (Negative); Blood Urine Negative (Negative); Color Urine Light Yellow (Yellow); Glucose Urine UA Negative (Negative); Ketones Urine Negative (Negative); Leukocyte Esterase Ur Negative (Negative); Nitrate Urine Negative (Negative); Protein Urine Trace (Negative); Specific Grav Ur 1.015 (1.010-1.020); Urobilinogen Urine 0.2 mg/dL (0.2-1.0)
[2023-08-03 11:16] LABS: Add Urine Microscopic? YES; Bacteria Urine Rare /hpf; RBC Urine None seen /hpf (0-2); WBC Urine None seen /hpf (0-3)
[2023-08-03 11:21] LABS: Basophils Absolute Auto 0.03 K/mm3 (0.00-0.10); Basophils Percent Auto 0.3 % (0.0-1.0); Eosinophils Absolute Auto 0.14 K/mm3 (0.02-0.50); Eosinophils Percent Auto 1.2 % (1.0-6.0); Hematocrit 40.2 % (40.0-54.0); Hemoglobin 13.1 g/dL (14.0-18.0); Immature Granulocyte Absolute 0.04 K/mm3 (0.00-0.00); Immature Granulocyte Percent A 0.4 % (0.0-0.0); Lymphocytes Absolute Auto 0.87 K/mm3 (1.10-4.50); Lymphocytes Percent Auto 7.6 % (18.0-42.0); Mean Corpuscular HGB Conc 32.6 g/dL (32.0-36.0); Mean Corpuscular Hemoglobin 28.9 pg (27.0-31.0); Mean Corpuscular Volume 88.7 fL (78.0-102.0); Mean Platelet Volume 9.7 fl (8.7-11.0); Monocytes Absolute Auto 0.45 K/mm3 (0.10-0.90); Neutrophils Absolute Auto 9.9 K/mm3 (1.7-7.2); Neutrophils Percent Auto 86.5 % (50.0-70.0); Platelet Count Result 148 K/mm3 (150-420); Red Blood Count 4.53 M/mm3 (4.70-6.10); Red Cell Distribution Width 12.5 % (11.6-14.4); White Blood Count 11.4 K/mm3 (4.8-10.8)
[2023-08-03 11:31] LABS: INR 4.3; Prothrombin Time 42.8 Seconds (9.50-12.10)
[2023-08-03 12:52] LABS: Alanine Aminotransferase 19 U/L (16-63); Albumin Level 3.6 g/dL (3.4-5.0); Alkaline Phosphatase 72 U/L (46-116); Anion Gap 9 mmol/L (8-16); Aspartate Amino Transferase 15 U/L (15-37); Bilirubin,Total 0.5 mg/dL (0.00-1.00); Blood Urea Nitrogen 24 mg/dL (7-18); CRP < 0.5 mg/dL (0.0-0.9); Calcium 9.3 mg/dL (8.5-10.1); Carbon Dioxide 29 mmol/L (21-32); Chloride 100 mmol/L (98-108); Estimated Glomerular Filt Rate 35; Glucose 117 mg/dL (70-99); Osmolality Calculated 291 mOsm/kg (285-295); Potassium 4.2 mmol/L (3.5-5.1); Sodium 138 mmol/L (136-145); Total Protein 6.8 g/dL (6.4-8.2)
== END 2023-08-03 10:41 | disposition home or self-care (01) ==
LOC: CHSLAB 10:46
PROVIDERS: PCP Internal Medicine; Visit Provider Internal Medicine
DX: K57.92 Diverticulitis of intestine, part unspecified, without perforation or abscess without bleeding (principal); N18.30 Chronic kidney disease, stage 3 unspecified; Z79.01 Long term (current) use of anticoagulants
CPT/HCPCS: 36415; 80053; 81001; 85025; 85610; 86140

== ENCOUNTER 2023-08-07 09:45 | Outpatient (CLI) | payer MEDICARE, SELFPAY ==
[2023-08-07 10:01] LABS: Basophils Absolute Auto 0.04 K/mm3 (0.00-0.10); Basophils Percent Auto 0.4 % (0.0-1.0); Eosinophils Absolute Auto 0.12 K/mm3 (0.02-0.50); Eosinophils Percent Auto 1.1 % (1.0-6.0); Hematocrit 37.3 % (40.0-54.0); Hemoglobin 12.5 g/dL (14.0-18.0); Immature Granulocyte Absolute 0.06 K/mm3 (0.00-0.00); Immature Granulocyte Percent A 0.6 % (0.0-0.0); Lymphocytes Absolute Auto 0.99 K/mm3 (1.10-4.50); Lymphocytes Percent Auto 9.1 % (18.0-42.0); Mean Corpuscular HGB Conc 33.5 g/dL (32.0-36.0); Mean Corpuscular Hemoglobin 29.5 pg (27.0-31.0); Mean Platelet Volume 9.7 fl (8.7-11.0); Monocytes Absolute Auto 0.67 K/mm3 (0.10-0.90); Monocytes Percent Auto 6.2 % (2.0-11.0); Neutrophils Percent Auto 82.6 % (50.0-70.0); Platelet Count Result 167 K/mm3 (150-420); Red Blood Count 4.24 M/mm3 (4.70-6.10); Red Cell Distribution Width 12.6 % (11.6-14.4); White Blood Count 10.9 K/mm3 (4.8-10.8)
[2023-08-07 10:16] LABS: Prothrombin Time 79.3 Seconds (9.50-12.10)
[2023-08-07 10:17] LABS: Alanine Aminotransferase 27 U/L (16-63); Albumin Level 3.2 g/dL (3.4-5.0); Alkaline Phosphatase 60 U/L (46-116); Anion Gap 8 mmol/L (8-16); Aspartate Amino Transferase 30 U/L (15-37); Bilirubin,Total 0.4 mg/dL (0.00-1.00); Blood Urea Nitrogen 18 mg/dL (7-18); Carbon Dioxide 27 mmol/L (21-32); Chloride 100 mmol/L (98-108); Estimated Glomerular Filt Rate 27; Glucose 115 mg/dL (70-99); Osmolality Calculated 282 mOsm/kg (285-295); Potassium 3.7 mmol/L (3.5-5.1); Sodium 135 mmol/L (136-145); Total Protein 6.8 g/dL (6.4-8.2)
[2023-08-07 10:20] LABS: INR 8.4
== END 2023-08-07 09:46 | disposition home or self-care (01) ==
PROVIDERS: PCP Internal Medicine; Visit Provider Internal Medicine
DX: K57.92 Diverticulitis of intestine, part unspecified, without perforation or abscess without bleeding (principal); N18.30 Chronic kidney disease, stage 3 unspecified
CPT/HCPCS: 36415; 80053; 85025; 85610

== ENCOUNTER 2023-08-11 08:37 | Emergency (ER) | payer MEDICARE, SELFPAY ==
[2023-08-11 09:08] VITALS: BP 103/54; PULSE 66; RESP 18; TEMP 36.6; O2SAT 100
--- NOTE | 2023-08-11 09:11 | ECG_ITS ---
Measurements Intervals [place] Rate: 63 P: 78 VA: 155 QRS: 34 QRSD: 101 T: 127 QT: 403 QTc: 413 Interpretive Statements SINUS RHYTHM ST DEVIATION AND MODERATE T-WAVE ABNORMALITY, CONSIDER LATERAL ISCHEMIA [-0.1+ mV T WAVE IN I/aVL/V5/V6] NO PREVIOUS ECG AVAILABLE FOR COMPARISON Electronically Signed On 08-11-2023 15:36:22 DIRECTOR SPECIALTY by Michael Fisher M.D.
--- NOTE | 2023-08-11 13:24 | PC.NURSE ---
Patient son up to desk to inquire about wait time. Patient son informed we are unable to give out wait time. Patient son explained that we only have so many rooms to work out of, we have a high influx of patients, and that we take people back based on acuity not order of arrival. Son replied, yeah. what I see is a [facility] and walked away.
--- NOTE | 2023-08-11 13:26 | PC.NURSE ---
Patient and son up to desk. Patient threw wristband at intake desk and stated, Scott Arrington. Checking out. Patient and son seen ambulating out of building.
== END 2023-08-11 11:26 | disposition left against medical advice (07) ==
PROVIDERS: Emergency Provider Family Medicine; PCP Internal Medicine
DX: R07.9 Chest pain, unspecified (principal)
CPT/HCPCS: 93005; 99199

== ENCOUNTER 2023-08-12 09:36 | Outpatient (CLI) | payer MEDICARE, SELFPAY ==
[2023-08-12 09:51] LABS: Basophils Absolute Auto 0.04 K/mm3 (0.00-0.10); Basophils Percent Auto 0.6 % (0.0-1.0); Eosinophils Absolute Auto 0.19 K/mm3 (0.02-0.50); Eosinophils Percent Auto 2.9 % (1.0-6.0); Hematocrit 36.8 % (40.0-54.0); Hemoglobin 12.3 g/dL (14.0-18.0); Immature Granulocyte Absolute 0.02 K/mm3 (0.00-0.00); Immature Granulocyte Percent A 0.3 % (0.0-0.0); Immature Platelet Fraction Pct 2.6 % (1.0-7.0); Lymphocytes Absolute Auto 0.97 K/mm3 (1.10-4.50); Lymphocytes Percent Auto 14.6 % (18.0-42.0); Mean Corpuscular HGB Conc 33.4 g/dL (32.0-36.0); Mean Corpuscular Hemoglobin 29.6 pg (27.0-31.0); Mean Corpuscular Volume 88.5 fL (78.0-102.0); Mean Platelet Volume 9.4 fl (8.7-11.0); Monocytes Absolute Auto 0.53 K/mm3 (0.10-0.90); Neutrophils Absolute Auto 4.9 K/mm3 (1.7-7.2); Neutrophils Percent Auto 73.6 % (50.0-70.0); Platelet Count Result 153 K/mm3 (150-420); Red Blood Count 4.16 M/mm3 (4.70-6.10); Red Cell Distribution Width 12.7 % (11.6-14.4); White Blood Count 6.6 K/mm3 (4.8-10.8)
[2023-08-12 10:02] LABS: INR 1.3; Prothrombin Time 14.1 Seconds (9.50-12.10)
[2023-08-12 11:07] LABS: Alanine Aminotransferase 20 U/L (16-63); Albumin Level 3.1 g/dL (3.4-5.0); Alkaline Phosphatase 54 U/L (46-116); Anion Gap 8 mmol/L (8-16); Aspartate Amino Transferase 18 U/L (15-37); Bilirubin,Total 0.6 mg/dL (0.00-1.00); Blood Urea Nitrogen 14 mg/dL (7-18); Calcium 8.8 mg/dL (8.5-10.1); Carbon Dioxide 28 mmol/L (21-32); Chloride 104 mmol/L (98-108); Estimated Glomerular Filt Rate 38; Glucose 109 mg/dL (70-99); Osmolality Calculated 291 mOsm/kg (285-295); Potassium 3.7 mmol/L (3.5-5.1); Sodium 140 mmol/L (136-145); Total Protein 5.9 g/dL (6.4-8.2)
== END 2023-08-12 09:37 | disposition home or self-care (01) ==
LOC: CHSLAB 09:38
PROVIDERS: PCP Internal Medicine; Visit Provider Internal Medicine
DX: R10.32 Left lower quadrant pain (principal); Z79.01 Long term (current) use of anticoagulants
CPT/HCPCS: 36415; 80053; 85025; 85055; 85610

== ENCOUNTER 2024-05-20 03:41 | Emergency (ER) | payer MEDICARE, SELFPAY ==
[2024-05-20 03:41] VITALS: BP 0/0; PULSE 0; RESP 12; TEMP 30.1; O2SAT 52
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
--- NOTE | 2024-05-20 05:08 | PC.NURSE ---
Family wishes to use [facility]- [place]. They have been notified by family, but waiting on release from [facility]. ERP at bedside speaking with family.
--- NOTE | 2024-05-20 05:22 | PC.NURSE ---
Spoke with family about [facility] calling them, still waiting typewriters functional tester back from [facility] to release body. Family does not wish to donate anything if the patient was not a donor.
--- NOTE | 2024-05-20 05:33 | PC.NURSE ---
Spoke with Cathy nguyen [facility]- stated that she physically needs to hear from the family that they do not consent to any donation at this time. Waiting for the screening process to be done and family to be notified. She also stated that he can be released to the home but they still have to wait to process the body until he is released. Family updated.
--- NOTE | 2024-05-20 06:23 | PC.NURSE ---
Spoke with family, [employer] [facility] to retrieve body. Permit for Removal of Body signed by brother.
--- NOTE | 2024-05-20 06:31 | PC.NURSE ---
patients body placed in body bag
--- NOTE | 2024-05-20 06:43 | PC.NURSE ---
home arrival to retrieve body.
--- NOTE | 2024-05-20 06:45 | PC.NURSE ---
Familia with [facility] called back, stated patient a registered organ donor and is eligible to donate. They will reach out to family regarding donation. home aware of [facility] pending decision.
== END 2024-05-20 07:00 | disposition expired ==
PROVIDERS: Emergency Provider Family Medicine; PCP Internal Medicine
DX: I46.9 Cardiac arrest, cause unspecified (principal); I10 Essential (primary) hypertension; F17.200 Nicotine dependence, unspecified, uncomplicated; Z86.73 Personal history of transient ischemic attack (TIA), and cerebral infarction without residual deficits
CPT/HCPCS: 92950; 99285; J0171